=== PATIENT | female | born 1960 | race Caucasian/White ===

== ENCOUNTER → 2021-07-12 13:09 | Outpatient (CLI) | payer OTHER, SELFPAY ==
[2021-07-12 14:18] LABS: Add Manual Diff / Slide Review NO; Basophils Absolute Auto 0 /uL (0-100); Basophils Percent Auto 0.6 % (0-2); Eosinophils Absolute Auto 100 /uL (0-450); Eosinophils Percent Auto 1.2 % (2-4); Hematocrit 38.6 % (36-46); Hemoglobin 12.8 g/dL (12.0-16.0); Lymphocytes Absolute Auto 1500 /uL (1100-4500); Lymphocytes Percent Auto 26.6 % (25-40); Mean Corpuscular HGB Conc 33.3 % (30-36); Mean Corpuscular Hemoglobin 32.2 PG (26-34); Mean Corpuscular Volume 96.7 fL (80-100); Monocytes Absolute Auto 500 /uL (0-900); Monocytes Percent Auto 8.4 % (3-14); Neutrophils Absolute Auto 3700 /uL (1500-7000); Neutrophils Percent Auto 63.2 % (50-75); Platelet Count 273 X10^3/uL (150-400); Red Blood Cell Count 3.99 X10^6/uL (4.0-5.2); White Blood Cell Count 5.8 X10^3/uL (4.5-11.0)
[2021-07-12 14:28] LABS: Alanine Aminotransferase 19 IU/L (<35); Albumin 4.4 g/dL (3.5-5.0); Albumin Globulin Ratio 1.7 (1.0-2.8); Alkaline Phosphatase 118 U/L (38-126); Aspartate Aminotransferase 25 IU/L (14-36); BUN Creatinine Ratio 16.7 (6-22); Bilirubin Total 0.3 mg/dL (0.2-1.3); Blood Urea Nitrogen 10 mg/dL (7-17); Calcium 9.7 mg/dL (8.4-10.2); Carbon Dioxide 27 mmol/L (22-32); Chloride 102 mmol/L (98-107); Cholesterol 277 mg/dL (140-199); Estimated Glomerular Filt Rate > 60.0 mL/min (>60); Globulin 2.6 g/dL (1.7-4.1); Glucose 120 mg/dL (80-110); HDL Cholesterol 59 mg/dL (40-60); HEMOLYSIS < 15 (0-50); LDL Cholesterol Calculated 162 mg/dL (<100); Potassium 4.4 mmol/L (3.4-5.1); Sodium 140 mmol/L (137-145); Triglycerides 280 mg/dL (35-150)
[2021-07-12 14:55] LABS: TSH w/ Reflex to FT4 1.84 uIU/mL (0.47-4.68)
[2021-07-13 14:54] LABS: Free T4, Direct Thyroxine 1.33 ng/dL (0.78-2.19)
== END ==
PROVIDERS: PCP Physician Assistant; Referring Provider Physician Assistant; Visit Provider Physician Assistant
DX: Z85.3 Personal history of malignant neoplasm of breast (principal); E03.9 Hypothyroidism, unspecified; E78.5 Hyperlipidemia, unspecified
CPT/HCPCS: 36415; 80053; 80061; 84439; 84443; 85025

== ENCOUNTER → 2021-07-23 16:29 | Outpatient (CLI) | payer OTHER, SELFPAY ==
--- NOTE | 2021-07-23 16:31 | DI.RAD.S_ITS ---
PROCEDURE: XR SHOULDER LT MIN 2V INDICATIONS: PAIN/BURSITIS TECHNIQUE: 3 views of the shoulder were acquired. COMPARISON: None. FINDINGS: Bones: No acute fracture. Severe AC joint degeneration. Scattered degenerative subchondral sclerosis and spurring. Soft tissues: No suspicious soft tissue calcifications. IMPRESSION: Severe AC joint degeneration. If the patient's pain or other symptoms persist, consider further evaluation with MRI Dictated by: Cuong Acharya M.D. on 07/23/2021 at 17:03 Approved by: Cuong Acharya M.D. on 07/23/2021 at 17:03
== END ==
PROVIDERS: PCP Physician Assistant; Referring Provider Physician Assistant; Visit Provider Physician Assistant
DX: M25.512 Pain in left shoulder (principal); M75.52 Bursitis of left shoulder; M19.012 Primary osteoarthritis, left shoulder
CPT/HCPCS: 73030

== ENCOUNTER → 2021-08-21 12:15 | Outpatient (ROUT) | payer OTHER, SELFPAY ==
[2021-08-21 12:37] LABS: COVID19 -Nasal RAPID Negative (Negative)
== END ==
PROVIDERS: PCP Physician Assistant; Visit Provider Physician Assistant
DX: Z20.822 Contact with and (suspected) exposure to COVID-19 (principal)
CPT/HCPCS: 87635

== ENCOUNTER → 2021-09-24 15:33 | Outpatient (CLI) | payer OTHER, SELFPAY ==
--- NOTE | 2021-09-24 | DI.MG.S_ITS ---
BILATERAL DIGITAL SCREENING MAMMOGRAM 3D/2D WITH CAD: 09/24/2021 CLINICAL: Routine screening.Breast cancer. Family history of breast cancer. Comparison is made to exams dated: 09/21/2020 mammogram, 07/01/2019 mammogram, and 06/30/2018 mammogram - outside. The tissue of both breasts is heterogeneously dense. This may lower the sensitivity of mammography. Current study was also evaluated with a Computer Aided Detection (CAD) system. There are benign post operative findings in the right breast. No significant masses, calcifications, or other findings are seen in either breast. There has been no significant interval change. IMPRESSION: BENIGN There is no mammographic evidence of malignancy. A 1 year screening mammogram is recommended. This exam was interpreted at Station ID: [id number]. NOTE: For mammograms, a report in lay terms will be sent to the patient. Approximately 15% of breast malignancies will not be visualized mammographically. In the management of a palpable breast mass, a negative mammogram must not discourage biopsy of a clinically suspicious lesion. Electronically Signed By: Lucas adams/gorge:09/24/2021 16:56:21 letter sent: Normal Exam ACR BI-RADS Category 2: Benign Finding(s) 3342F
== END ==
PROVIDERS: PCP Physician Assistant; Referring Provider Physician Assistant; Visit Provider Physician Assistant
DX: Z12.31 Encounter for screening mammogram for malignant neoplasm of breast (principal); Z85.3 Personal history of malignant neoplasm of breast; Z80.3 Family history of malignant neoplasm of breast
CPT/HCPCS: 77063; 77067

== ENCOUNTER → 2022-06-05 11:33 | Outpatient (ROUT) | payer OTHER, SELFPAY ==
[2022-06-05 15:56] LABS: COVID19 -Nasal RAPID POSITIVE (Negative)
== END ==
PROVIDERS: PCP Physician Assistant; Visit Provider Family Medicine
DX: U07.1 COVID-19 (principal)
CPT/HCPCS: 87635

== ENCOUNTER → 2022-07-09 09:52 | Outpatient (CLI) | payer OTHER, SELFPAY ==
[2022-07-09 12:03] LABS: Alanine Aminotransferase 29 IU/L (<35); Albumin 4.6 g/dL (3.5-5.0); Albumin Globulin Ratio 1.4 (1.0-2.8); Alkaline Phosphatase 157 U/L (38-126); Aspartate Aminotransferase 28 IU/L (14-36); BUN Creatinine Ratio 23.5 (6-22); Bilirubin Total 0.5 mg/dL (0.2-1.3); Blood Urea Nitrogen 16 mg/dL (7-17); Calcium 9.6 mg/dL (8.4-10.2); Carbon Dioxide 26 mmol/L (22-32); Chloride 103 mmol/L (98-107); Cholesterol 314 mg/dL (140-199); Estimated Glomerular Filt Rate > 60 mL/min (>60); Globulin 3.2 g/dL (1.7-4.1); Glucose 100 mg/dL (80-110); HDL Cholesterol 56 mg/dL (40-60); HEMOLYSIS < 15 (0-50); LDL Cholesterol Calculated 215 mg/dL (<100); Potassium 4.5 mmol/L (3.4-5.1); Sodium 139 mmol/L (137-145); Total Protein 7.8 g/dL (6.3-8.2); Triglycerides 216 mg/dL (35-150)
[2022-07-09 12:34] LABS: TSH w/ Reflex to FT4 2.51 uIU/mL (0.47-4.68)
== END ==
PROVIDERS: PCP Physician Assistant
DX: E03.9 Hypothyroidism, unspecified (principal); E78.5 Hyperlipidemia, unspecified
CPT/HCPCS: 36415; 80053; 80061; 84443

== ENCOUNTER 2022-07-18 22:34 | Emergency (ER) | payer OTHER, SELFPAY ==
[2022-07-18 22:41] VITALS: BP 162/70; PULSE 86; RESP 18; TEMP 36.2; O2SAT 99; BMI 32.9
--- NOTE | 2022-07-19 01:00 | PC.NURSE ---
States that she had white shooting lights flashing in her eye - states that it resolved at the time when she went to bed - states that it did not happen throughout the day but it did occur a second time this evening - was concerned for a retinal detachement - no vision changes
--- NOTE | 2022-07-19 02:27 | ED.GENADULT ---
HPI - General Adult General Chief complaint: Eye Problems Stated complaint: sudden visual changes lt eye Time Seen by Provider: 07/19/22 02:13 Source: patient Mode of arrival: Ambulatory History of Present Illness HPI narrative: 62-year-old woman with history of hypothyroidism and seasonal allergies presents complaining of greater than 24 hours of bright lights peripheral vision laterally in the left eye only. She notices it only at night once the lights are out. With lights around and other distractions she does not appreciated. She is not complaining of any other visual loss, floaters, headaches, eye drainage, eye pain. She is not had any specific trauma to her head or eyes recently. She describes no fevers, cough, chills, chest pain, palpitations, abdominal pain, vomiting or diarrhea. Related Data Home Medications Medication Instructions Recorded Confirmed cetirizine 5 mg tablet 15 mg PO DAILY 06/06/21 03/13/22 fexofenadine 60 mg capsule 60 mg PO DAILY 06/06/21 03/13/22 levothyroxine 112 mcg tablet 112 mcg PO DAILY 06/06/21 03/13/22 solifenacin 5 mg tablet (Vesicare) 5 mg PO DAILY 06/06/21 03/13/22 Allergies Allergy/AdvReac Type Severity Reaction Status Date / Time latex Allergy Unknown Rash Verified 06/06/21 11:35 Penicillins Allergy Unknown Numbness Verified 06/06/21 11:36 Review of Systems Review of Systems Narrative: Remainder of complete review of systems is otherwise unremarkable except for that included in the HPI. Patient History Medical History (Updated 07/19/22 @ 02:36 by Lissette Francis MD) Hypothyroid Social History Smoking Status: Never smoker Smoking Status: Never smoker alcohol intake frequency: 0-2 drinks per day Substance Use Type: does not use Exam Initial Vital Signs Initial Vital Signs: Vital Signs Temperature 97.2 F L 07/18/22 22:41 Pulse Rate 86 07/18/22 22:41 Respiratory Rate 18 07/18/22 22:41 Blood Pressure 162/70 H 07/18/22 22:41 Pulse Oximetry 99 07/18/22 22:41 Oxygen Delivery Method 07/18/22 22:41 General: Alert appropriate in no acute distress HEENT: Vision is 20/20 bilateral and 20/20 in the right and the left individually. Pupils are equal round reactive to light and accommodation. She has normal and nonpainful eye movement in all directions. There is no scleral injection. There is no eye irritation to the lids or cornea. Retinal exam without pupillary dilation suggests some slight blurring on the left side. I am able to make out some vessels but can not see vessels completely clearly nor disc. The right side is completely normal with sharp disc and easily visualized vessels. Respiratory: Able to speak in full sentences, no obvious respiratory distress Skin: No obvious rashes, warm and dry Neurologic: Grossly intact no obvious asymmetries or abnormalities Psych: appropriate insight and affect, cooperative Bedside ultrasound of the eyes: No evidence of obvious retinal detachment on either side Course Vital Signs Vital signs: Vital Signs - 8 hr 07/18/22 22:41 Temperature 97.2 F L Pulse Rate 86 Respiratory Rate 18 Blood Pressure 162/70 H Pulse Oximetry 99 Oxygen Delivery Method Room Air Medical Decision Making MDM Narrative Medical decision making narrative: 62-year-old woman with 48 hours of far left peripheral visual abnormality left eye only. No signs or symptoms of stroke. Clinical exam does not suggest a large retinal detachment. Funduscopic exam does show mild abnormalities with some blurring through the vitreous and inability to completely visualize vessels and disc on the left side. There is no evidence of trauma, infection, tumors, stroke. She may have had a small vessel bleed causing some of the visual abnormalities. Distal small retinal detachment remains within the field of possibilities. At this point will ask her to contact [facility] 1st thing in the morning explain she was in the emergency department is having some left-sided eye decreased vision and have a more thorough eye exam with dilated retinal evaluation. She is safe for discharge at this time Discharge Plan Departure Patient Disposition: Home Clinical Impression: Abnormal peripheral vision Qualifiers: Laterality: left Qualified Code(s): H53.452 - Other localized visual field defect, left eye Activity Restrictions/Additional Instructions: Thank you for coming in today Your vision is 20/20 in the left eye, the right eye and with both eyes There is no evidence of a large retinal detachment, retinal artery or vein occlusion, tumors or masses in the eyes, stroke, glaucoma or other vision threatening or life-threatening abnormalities appreciated. The direct retinal exam I am able to do in the emergency department is limited by the fact that I do not have the ability to dilate your eyes. I am going to suggest that you contact [facility] at [phone] first thing in the morning to schedule an appointment. Please explain that you are in the emergency department in your having some left-sided peripheral field abnormalities that need further evaluation. If you find that you are getting worse or develop any new symptoms, please feel free to return to the emergency department for further evaluation. Prescriptions: No Action cetirizine 5 mg Tablet 15 mg PO DAILY fexofenadine 60 mg Capsule 60 mg PO DAILY levothyroxine 112 mcg Tablet 112 mcg PO DAILY solifenacin [Vesicare] 5 mg Tablet 5 mg PO DAILY Referrals: Martine Leo PA-C [Primary Care Provider] -
== END 2022-07-19 02:44 | disposition home or self-care (01) ==
PROVIDERS: Emergency Provider Emergency Medicine; PCP Physician Assistant
DX: H53.452 Other localized visual field defect, left eye (principal)
CPT/HCPCS: 99281

== ENCOUNTER → 2022-09-23 10:03 | Outpatient (CLI) | payer OTHER, SELFPAY ==
[2022-09-23 11:13] LABS: COVID19 -Nasal RAPID Negative (Negative)
== END ==
PROVIDERS: PCP Physician Assistant; Visit Provider Surgery
DX: Z20.822 Contact with and (suspected) exposure to COVID-19 (principal); Z01.812 Encounter for preprocedural laboratory examination
CPT/HCPCS: 87635; C9803

== ENCOUNTER 2022-09-24 09:23 | Day surgery (SDC) | payer OTHER, SELFPAY ==
--- NOTE | 2022-09-24 | PATH_ITS ---
[facility] Accession Number: [id number] No. of containers..03 Tissue . 01 Material submitted: . PART A: colon - ASCENDING COLON PART B: colon - ASCENDING COLON #2 PART C: rectum - RECTUM . 01 Diagnosis: A. Ascending Colon, Biopsy: Tubular adenoma in 3 of 4 fragments. . B. Ascending Colon #2, Biopsy: Multiple fragments of tubular adenoma. . C. Rectum, Biopsy: Tubular adenoma. [facility] 09/27/2022 1118 Local . 01 Electronically signed: . Talita Alan MD, Pathologist NPI- [id number] . 01 Gross description: . Part A: ASCENDING COLON: Received in formalin are 4 fragment(s) of felder, soft tissue measuring 0.2 x 0.1 x 0.1 cm to 0.1 x 0.1 x 0.1 cm submitted entirely in 1 cassette(s) Part B: ASCENDING COLON #2: Received in formalin are multiple fragment(s) of felder, soft tissue measuring 1.3 x 0.7 x 0.1 cm in aggregate submitted entirely in 1 cassette(s) Part C: RECTUM: Received in formalin is 1 fragment(s) of felder, soft tissue measuring 0.5 x 0.3 x 0.3 cm submitted entirely in 1 cassette(s) /CPE 09/25/2022 0637 Local . 01 Pathologist provided ICD-10: D12.2, D12.8 . 01 CPT . 883220, 962837, 540631 Specimen Comment: A courtesy copy of this report has been sent to [phone] Performed at: 01 [facility] [address] [place] [address] [address] [facility], [place], [place] [id number] MD Taco Vazquez MD Phone: [phone]
[2022-09-24 09:38] VITALS: BMI 32.5
[2022-09-24] MEDS: LACTATED RINGERS 1,000 ML 42 ML IV (09:52)
[2022-09-24 09:54] VITALS: BP 131/87; PULSE 85; RESP 20; TEMP 36.6; O2SAT 100
--- NOTE | 2022-09-24 10:41 | PM.HP.1 ---
History of Present Illness History of Present Illness Date Patient Seen: 09/24/22 Time Patient Seen: 10:41 Chief complaint: SDC Narrative: The patient presents for colorectal screening. Previously normal colonoscopy. No personal or family history of colon cancer. On further history denies any recent gastrointestinal symptoms. No nausea, vomiting, abdominal pain, loss of appetite, unexplained weight loss, change in bowel habits, or blood per rectum. Patient History Medical History Hypothyroid Family & Social History Social History: household members spouse Tobacco & Substance use: Smoking Status Never smoker alcohol intake current alcohol intake frequency a few times a week Substance Use Type does not use Meds Home Medications and Allergies Home Medications Medication Instructions Recorded Confirmed Type cetirizine 5 mg tablet 30 mg PO DAILY 06/06/21 09/24/22 History fexofenadine 60 mg capsule 180 mg PO DAILY 06/06/21 09/24/22 History levothyroxine 112 mcg tablet 112 mcg PO DAILY 06/06/21 09/24/22 History solifenacin 5 mg tablet (Vesicare) 5 mg PO DAILY 06/06/21 09/24/22 History sodium,potassium,mag sulfates 17.5 See Rx Instructions PO .COMPLEX 09/10/22 09/24/22 Rx gram-3.13 gram-1.6 gram oral soln #354 mL (Suprep Bowel Prep Kit) Allergies Allergy/AdvReac Type Severity Reaction Status Date / Time latex Allergy Unknown Rash Verified 09/24/22 09:36 Penicillins Allergy Unknown Numbness Verified 09/24/22 09:36 Exam Vital Signs (past 8 hours): - 09/24/22 09:54 Temperature 97.9 F Pulse Rate 85 Respiratory Rate 20 Blood Pressure 131/87 Pulse Oximetry 100 Oxygen Delivery Method Room Air Oxygen Delivery Method Room Air Narrative Exam Narrative: General adult woman alert oriented no acute distress Abdomen soft nontender nondistended Assessment & Plan Assessment & Plan narrative: The patient requires colorectal screening and colonoscopy is recommended. Technical details were discussed. Risks, benefits, alternatives explained. Risks including but not limited to myocardial infarction, aspiration, bleeding, pain, missed lesion, incomplete examination, need for further radiographic studies, colonic perforation, and need for major abdominal surgery were discussed. All questions were answered to their satisfaction, and they are in agreement with this plan. Time Spent With Patient Critical Care time: I spent a total of [] minutes of critical care time on this patient's care today; this time is exclusive of procedural time.
--- NOTE | 2022-09-24 10:43 | PM.OP.COLON ---
Operative Date/Time/Diagnoses Date of procedure: 09/24/22 Time of procedure: 10:43 Pre-op diagnosis: Colorectal screening Post-op diagnosis: same Procedure & Clinicians Study performed: Colonoscopy Same procedure as scheduled: Yes Indications: Colorectal screening. Personal history of colonic polyps Surgeon: Angelito Morin Procedure Notes Procedure in detail: The history and physical was performed/updated and the patient is ASA class is 2. The procedure was discussed in detail with the patient. Potential risks complications including infection, bleeding, missed diagnosis, perforation, need for surgery, and were explained. Their questions were answered and informed consent was obtained. Patient was brought to the procedure room and placed standard monitoring equipment. The patient's vital signs were monitored continuously throughout the entire procedure. Prior to starting time-out was performed. The patient was placed in the left lateral recumbent position. Procedural sedation was administered by anesthesia. Examination began with a thorough inspection of the perianal area there was no evidence of fissures, fistulae, external hemorrhoids or cutaneous malignancy. The colonoscopy scope was then placed into the anal canal and was advanced to the cecum, which was identified by the ileocecal valve, the appendiceal orifice and the confluence of the taenia. The scope was then slowly withdrawn examining colon thoroughly in all directions, irrigating it of any residual stool. FINDINGS 1. Ascending colon 3 mm polyp removed with biopsy forceps 2. Ascending colon 2. 8 mm sessile polyp lifted with saline and tattoo ink then removed with cold snare. 80 cm from anal verge 3. Rectum 5 mm polyp removed with biopsy forceps The patient tolerated the procedure well. They will be discharged once criteria are met. The prep was of good/excellent quality. The withdrawl time was 13 minutes. Specimen(s): other (Ascending colon x2, rectum) Complications: none Impression: Colonic polyps Post-procedure Recommendations: High fiber diet Plan for aftercare: Follow-up is dependent on pathology findings Disposition: same day surgery
[2022-09-24 11:22] VITALS: PULSE 77; RESP 16; TEMP 36.1; O2SAT 97
[2022-09-24 11:28] VITALS: BP 139/91; PULSE 74; RESP 21; TEMP 36.3; O2SAT 96
[2022-09-24 11:32] VITALS: BP 132/89; PULSE 69; RESP 18; TEMP 36.3; O2SAT 97
[2022-09-24 11:45] VITALS: BP 130/75; PULSE 70; RESP 18; TEMP 36.4; O2SAT 98
== END 2022-09-24 11:47 | disposition home or self-care (01) ==
PROVIDERS: PCP Family Medicine; Referring Provider Surgery; Visit Provider Surgery
PROC: 0DJD8ZZ Inspection of Lower Intestinal Tract, Via Natural or Artificial Opening Endoscopic (ICD-10-PCS; CPT 45378; principal; 2022-09-24 10:15)
DX: Z12.11 Encounter for screening for malignant neoplasm of colon (principal); Z86.010 Personal history of colon polyps; D12.2 Benign neoplasm of ascending colon; D12.8 Benign neoplasm of rectum
CPT/HCPCS: 45385; 45380; 45381; J2704

== ENCOUNTER → 2022-09-25 10:40 | Outpatient (CLI) | payer OTHER, SELFPAY ==
--- NOTE | 2022-09-25 10:41 | DI.MG.S_ITS ---
BILATERAL DIGITAL SCREENING MAMMOGRAM 3D/2D WITH CAD: 09/25/2022 CLINICAL: Routine screening. Personal history of right breast cancer. Family history of breast cancer. Comparison is made to exams dated: 09/21/2020 mammogram, 07/01/2019 mammogram, and 06/30/2018 mammogram - outside. Both breasts are heterogeneously dense, which may obscure small masses (category c / 51-75% glandular tissue). Current study was also evaluated with a Computer Aided Detection (CAD) system. There are benign post operative findings in the right breast. No significant masses, calcifications, or other findings are seen in either breast. There has been no significant interval change. IMPRESSION: BENIGN There is no mammographic evidence of malignancy. A 1 year screening mammogram is recommended. Based on the Tyrer Cuzick model (a risk assessment model) the patient's lifetime risk is 11.0% and her 10 year risk is 4.8%. According to the ACR, ACS, and NCCN guidelines, an annual breast MRI exam along with mammogram is recommended if the patient's lifetime risk is 20% or greater. This exam was interpreted at Station ID: [id number]. NOTE: For mammograms, a report in lay terms will be sent to the patient. Approximately 15% of breast malignancies will not be visualized mammographically. In the management of a palpable breast mass, a negative mammogram must not discourage biopsy of a clinically suspicious lesion. Electronically Signed By: Myke pink/gorge:09/25/2022 11:59:13 letter sent: Normal Exam ACR BI-RADS Category 2: Benign Finding(s) 3342F
== END ==
PROVIDERS: PCP Family Medicine; Referring Provider Family Medicine; Visit Provider Family Medicine
DX: Z12.31 Encounter for screening mammogram for malignant neoplasm of breast (principal); Z85.3 Personal history of malignant neoplasm of breast; Z80.3 Family history of malignant neoplasm of breast
CPT/HCPCS: 77063; 77067

== ENCOUNTER → 2023-05-07 07:22 | Outpatient (CLI) | payer OTHER, SELFPAY ==
[2023-05-07 09:45] LABS: Alanine Aminotransferase 26 IU/L (<35); Albumin Globulin Ratio 1.5 (1.0-2.8); Alkaline Phosphatase 103 U/L (38-126); Aspartate Aminotransferase 29 IU/L (14-36); BUN Creatinine Ratio 17.7 (6-22); Bilirubin Total 0.5 mg/dL (0.2-1.3); Blood Urea Nitrogen 11 mg/dL (7-17); Carbon Dioxide 29 mmol/L (22-32); Chloride 102 mmol/L (98-107); Cholesterol 259 mg/dL (140-199); Estimated Glomerular Filt Rate > 60 mL/min (>60); Globulin 2.6 g/dL (1.7-4.1); Glucose 101 mg/dL (80-110); HDL Cholesterol 52 mg/dL (40-60); HEMOLYSIS < 15 (0-50); LDL Cholesterol Calculated 153 mg/dL (<100); Potassium 4.2 mmol/L (3.4-5.1); Sodium 137 mmol/L (137-145); Total Protein 6.6 g/dL (6.3-8.2); Triglycerides 271 mg/dL (35-150)
[2023-05-07 10:41] LABS: Free T4, Direct Thyroxine 1.11 ng/dL (0.78-2.19)
== END ==
PROVIDERS: PCP Nurse Practitioner Family; Referring Provider Nurse Practitioner Family; Visit Provider Nurse Practitioner Family
DX: E78.5 Hyperlipidemia, unspecified (principal); R74.8 Abnormal levels of other serum enzymes; E03.9 Hypothyroidism, unspecified
CPT/HCPCS: 36415; 80053; 80061; 84439; 84443

== ENCOUNTER → 2023-08-13 10:06 | Outpatient (CLI) | payer OTHER, SELFPAY ==
[2023-08-13 11:10] LABS: Cholesterol 250 mg/dL (140-199); HDL Cholesterol 49 mg/dL (40-60); LDL Cholesterol Calculated 142 mg/dL (<100); Triglycerides 293 mg/dL (35-150)
[2023-08-13 11:31] LABS: TSH w/ Reflex to FT4 4.74 uIU/mL (0.47-4.68)
[2023-08-13 13:15] LABS: Free T4, Direct Thyroxine 1.28 ng/dL (0.78-2.19)
== END ==
PROVIDERS: PCP Nurse Practitioner Family; Referring Provider Nurse Practitioner Family; Visit Provider Nurse Practitioner Family
DX: E03.9 Hypothyroidism, unspecified (principal); E78.5 Hyperlipidemia, unspecified
CPT/HCPCS: 36415; 80061; 84439; 84443

== ENCOUNTER → 2024-05-18 08:56 | Outpatient (CLI) | payer OTHER, SELFPAY ==
[2024-05-18 10:31] LABS: Alanine Aminotransferase 20 IU/L (<35); Albumin Globulin Ratio 1.3 (1.0-2.8); Alkaline Phosphatase 108 U/L (38-126); Aspartate Aminotransferase 24 IU/L (14-36); BUN Creatinine Ratio 21.3 (6-22); Bilirubin Total 0.5 mg/dL (0.2-1.3); Blood Urea Nitrogen 13 mg/dL (7-17); Calcium 9.9 mg/dL (8.4-10.2); Carbon Dioxide 28 mmol/L (22-32); Chloride 102 mmol/L (98-107); Cholesterol 288 mg/dL (140-199); Estimated Glomerular Filt Rate > 60 mL/min (>60); Glucose 107 mg/dL (80-110); HDL Cholesterol 63 mg/dL (40-60); HEMOLYSIS < 15 (0-50); LDL Cholesterol Calculated 168 mg/dL (<100); Potassium 4.4 mmol/L (3.4-5.1); Sodium 136 mmol/L (137-145); Triglycerides 286 mg/dL (35-150)
[2024-05-18 11:00] LABS: TSH w/ Reflex to FT4 2.73 uIU/mL (0.47-4.68)
== END ==
PROVIDERS: PCP Nurse Practitioner Family; Referring Provider Nurse Practitioner Family; Visit Provider Nurse Practitioner Family
DX: E03.9 Hypothyroidism, unspecified (principal); E78.5 Hyperlipidemia, unspecified
CPT/HCPCS: 36415; 80053; 80061; 84443

== ENCOUNTER → 2024-12-29 08:32 | Outpatient (CLI) | payer OTHER, SELFPAY ==
[2024-12-29 10:30] LABS: TSH w/ Reflex to FT4 1.11 uIU/mL (0.47-4.68)
== END ==
PROVIDERS: PCP Family Medicine; Referring Provider Family Medicine; Visit Provider Family Medicine
DX: E03.9 Hypothyroidism, unspecified (principal)
CPT/HCPCS: 36415; 84443

== ENCOUNTER → 2025-08-02 14:18 | Outpatient (CLI) | payer MEDICARE, OTHER, SELFPAY ==
--- NOTE | 2025-08-02 14:23 | DI.MG.S_ITS ---
MM screening mammo BI: 08/02/2025. BI-RADS: 2 CLINICAL: 65-year old female for bilateral screening mammogram. No Tyrer-Cuzick risk score calculation due to the patient's personal history of breast cancer. Patient reports a history of right breast carcinoma diagnosed at age 54. Status-post right lumpectomy with radiation therapy and hormonal therapy. Current reported family history of breast cancer: maternal grandmother and mother. The patient had a prior right breast biopsy. PRIOR EXAMS 04/16/2023, 09/25/2022, 09/24/2021. MAMMOGRAPHY TECHNIQUE: 2D and 3D (tomosynthesis) digital mammographic views obtained, with additional images as needed for full coverage. Current study was also evaluated with a Computer Aided Detection (CAD) system. DENSITY C. The breasts are heterogeneously dense, which may obscure small masses. MAMMOGRAPHY FINDINGS Right: Benign-appearing post-surgical changes noted on the right. There are no suspicious masses, calcifications, or other findings in the breast. Left: No suspicious mass, asymmetry, microcalcification, or other abnormality seen. IMPRESSION: Right * No evidence of malignancy with benign findings. Left * No evidence of malignancy. RECOMMENDATIONS Bilateral * Annual screening mammography. OVERALL ASSESSMENT CATEGORY BI-RADS-2: Benign. The [employer] recommends annual screening mammography beginning at age 40 for women with average risk of breast cancer. ELECTRONICALLY SIGNED: Xena Moreno M.D. on 08/09/2025 at 11:17:44 AM PT Interpreting Station ID: [id number]
--- NOTE | 2025-08-02 14:23 | DI.RAD.S_ITS ---
PROCEDURE: XR DEXA AXIAL SKELETON INDICATIONS: Osteoporosis screening COMPARISON: No prior exam for comparison. FINDINGS: Lumbar Spine: Bone mineral density 0.915 g/cm2, T score -1.2, osteopenia. Left Femoral Neck: Bone mineral density 0.656 g/cm2, T score -1.7, osteopenia. Left Hip: Bone mineral density 0.865 g/cm2, T score -0.6, normal. Fracture Risk Calculation (when applicable): 10-year fracture risk of a major osteoporotic fracture 9.1% without prior fracture, 15% with prior fracture and of a hip fracture 1.1% without prior fracture, 1.8% with prior fracture. (T score greater or equal to -1.0 to: NORMAL) (T score from -1.1 to -2.4: OSTEOPENIA) (T score less than or equal to -2.5: OSTEOPOROSIS) IMPRESSION: Osteopenia. Follow-up guidelines as follows: Osteoporosis: Consider a repeat DEXA and Vertebral Fracture Assessment (VFA) exam in 2 years or sooner if medically necessary, to reassess this patient's status. Osteopenia: Consider a repeat DEXA in 2-3 years to reassess this patient's status, or if there is a new clinical indication. Normal: Consider a repeat DEXA in 5 years or sooner, or if there is a new clinical indication. All treatment decisions require clinical judgment and consideration of individual patient factors, including patient preferences, comorbidities, previous drug use, risk factors not captured in the FRAX model (e.g., frailty, falls, vitamin D deficiency, increased bone turnover, interval significant decline in bone density ) and possible under- or over-estimation of fracture risk by FRAX. In addition, the NOF Guide recommends that FDA-approved medical therapies be considered in postmenopausal women and men age >= 50 years with a: * Hip or vertebral (clinical or morphometric) fracture * T-score of <=-2.5 at the spine or hip * Ten-year fracture probability by FRAX of >= 3% for hip fracture or >=20% for major osteoporotic fracture. Dictated by: Alex Cee M.D. on 08/03/2025 at 10:52 Approved by: Alex Cee M.D. on 08/03/2025 at 10:59
== END ==
PROVIDERS: PCP Family Medicine; Referring Provider Family Medicine; Visit Provider Family Medicine
DX: Z12.31 Encounter for screening mammogram for malignant neoplasm of breast (principal); Z85.3 Personal history of malignant neoplasm of breast; Z80.3 Family history of malignant neoplasm of breast; R92.333 Mammographic heterogeneous density, bilateral breasts; M85.89 Other specified disorders of bone density and structure, multiple sites; Z78.0 Asymptomatic menopausal state
CPT/HCPCS: 77063; 77067; 77080